=== PATIENT | female | born 1980 | race Caucasian/White ===

== ENCOUNTER 2021-11-03 06:18 | Inpatient (IN) | payer BC ==
[~2021-11-03] VITALS: Ht 167.6 cm; Wt 106.3 kg
[~2021-11-03 06:18] MED LIST: CALCIUM CARBONATE CHEW; PRENATAL VITAMI1 TA5 PO; ZANTAC
[2021-11-03] MEDS ORDERED: ASPIRIN 32325 MG/TAB PO (06:30)
[2021-11-03] MEDS ORDERED: ONE-A-DAY ESSE1 EACH PO (06:31)
[2021-11-03 07:01] LABS: BASO # 0.1 K/mm3 (0.0-0.2); BASO % 0.7 % (0.0-2.0); EOS # 0.1 K/mm3 (0.0-0.7); EOS % 1.1 % (0.0-4.0); GRAN # 7.8 K/mm3 (1.4-6.5); GRAN % 72.3 % (42.2-75.2); HEMATOCRIT 42.8 % (37.0-47.0); HEMOGLOBIN 14.1 g/dl (12.5-16.0); LYMPH # 2.1 K/mm3 (1.2-3.4); LYMPH % 19.6 % (20.0-51.0); MEAN CELL VOLUME 87 fl (80.0-100.0); MEAN CORPUSCULAR HEMOGLOBIN 29 pg (27-31); MEAN CORPUSCULAR HGB CONC 33 g/dl (33.0-37.0); MEAN PLATELET VOLUME 9.8 fl (7.4-10.4); MONO # 0.6 K/mm3 (0.1-0.6); PLATELET COUNT 376 K/mm3 (130-400); RED BLOOD COUNT 4.95 M/mm3 (4.10-5.30); REDCELL DISTRIBUTION WIDTH-CV 13.7 % (11.5-14.5)
[2021-11-03 07:17] LABS: ALBUMIN 4.1 gm/dL (3.5-5.0); BILIRUBIN,TOTAL 0.5 mg/dL (0.2-1.2); CALCIUM 9.6 mg/dL (8.4-10.2); CREATININE, serum 0.93 mg/dL (0.57-1.11); POTASSIUM 3.6 mmol/L (3.5-4.5); TOTAL PROTEIN 7.5 gm/dL (6.2-8.1)
[2021-11-03 07:28] LABS: TROPONIN-I 0.077 ng/mL (0.00-0.033)
[2021-11-03] MEDS ORDERED: CLARITIN 1010 MG/TAB PO (12:26)
[2021-11-03 12:53] VITALS: BP 169/112; PULSE 95; TEMP 98.3
[2021-11-03 13:15] LABS: TRICYCLIC ANTIDEPRESS URINE NEGATIVE
[2021-11-03 16:25] VITALS: BP 175/114; PULSE 90; TEMP 97.6
[2021-11-03 19:31] VITALS: BP 153/99; PULSE 79; TEMP 98.1
[2021-11-04 00:11] VITALS: BP 144/83; PULSE 76; TEMP 98.4
[2021-11-04 04:48] VITALS: BP 146/84; PULSE 73; TEMP 98
--- NOTE | 2021-11-04 06:30 | NUR ---
ASSESSMENT COMPLETE FOR THIS SHIFT. PT SITTING IN BED WITH HER MOTHER BY HER SIDE. PT COMPLAINED OF A HEADACHE A COUPLE OF TIMES TONIGHT. PT GIVEN TYLENOL FOR PAIN. PT FELT TYLENOL WAS EFFECTIVE FOR HER PAIN. PT DENIED PALPITATIONS, SOB, N,V,D OR DIZZINESS. PT'S BLOOD PRESSURES IMPROVED TONIGHT WELL. PT EXPRESSED NO OTHER NEEDS AT THIS TIME. CALL LIGHT WITHIN REACH.
[2021-11-04 07:14] LABS: BASO % 0.5 % (0.0-2.0); EOS # 0.1 K/mm3 (0.0-0.7); GRAN # 5.4 K/mm3 (1.4-6.5); GRAN % 65.7 % (42.2-75.2); HEMOGLOBIN 12.2 g/dl (12.5-16.0); LYMPH % 24.9 % (20.0-51.0); MEAN CELL VOLUME 84 fl (80.0-100.0); MEAN CORPUSCULAR HEMOGLOBIN 28 pg (27-31); MEAN CORPUSCULAR HGB CONC 33 g/dl (33.0-37.0); MEAN PLATELET VOLUME 9.6 fl (7.4-10.4); MONO # 0.6 K/mm3 (0.1-0.6); MONO % 7.7 % (1.7-9.3); PLATELET COUNT 342 K/mm3 (130-400); RED BLOOD COUNT 4.35 M/mm3 (4.10-5.30); REDCELL DISTRIBUTION WIDTH-CV 13.6 % (11.5-14.5)
[2021-11-04 07:15] VITALS: BP 148/93; PULSE 78; TEMP 97.9
[2021-11-04 07:15] LABS: HEMATOCRIT 36.5 % (37.0-47.0)
[2021-11-04 07:29] LABS: ALBUMIN 3.4 gm/dL (3.5-5.0); CALCIUM 8.6 mg/dL (8.4-10.2); CREATININE, serum 0.78 mg/dL (0.57-1.11); MAGNESIUM 2.1 mg/dL (1.6-2.6); PHOSPHOROUS 3.5 mg/dL (2.3-4.7); POTASSIUM 3.5 mmol/L (3.5-4.5)
--- NOTE | 2021-11-04 10:53 | NUR ---
PT SITTIN UP IN BED. MORNING MEDICATIONS GIVEN. SHIFT ASSESSMENT COMPLETED. AT BEDSIDE. PT DENIES ANY PAIN AT THIS TIME. STATES SHE IS EAGER TO D/C HOME. UPDATED PT ON POC. WILL CONTINUE TO MONITOR.
--- NOTE | 2021-11-04 11:15 | NUR ---
SW met with patient to complete intake. Patient provides that she lives in [facility] with her Rudi Olson [phone] who was also present during intake. Patient provides that she does not utilize DME, and is independent with ADL's. PCP is Dr. Reed, pharmacy is [facility]. Patient states that she does not have anyone appointed as her DPOA-HC and does not wish to appoint anyone at this time. DC plan is to return to her home. Patient had not questions or concerns upon completion of intake. SW will continue to follow. DC plan: Home
[2021-11-04 11:46] VITALS: BP 145/86; PULSE 77; TEMP 98.2
[2021-11-04] MEDS ORDERED: ASPIRIN E.C. 8181 MG PO (13:16)
[2021-11-04] MEDS ORDERED: ZESTRIL40 MG PO (13:17)
[2021-11-04] MEDS ORDERED: PLAVIX 75MG TAB75 MG PO (13:17)
[2021-11-04] MEDS ORDERED: TOPROL XL 50MG50 MG PO (13:17)
[2021-11-04 13:25] LABS: PROTEIN, TOTAL URINE random 10 mg/dL
[2021-11-04 13:30] LABS: URINE TOTAL VOLUME 2325 mL; URINE TOTAL VOLUME - 24 HRS 2325 mL/24 hr
[2021-11-04] MEDS ORDERED: APRESOLINE 25MG25 MG PO (14:30)
--- NOTE | 2021-11-04 14:52 | NUR ---
DISCHARGE INSTRUCTIONS GIVEN, ALL QUESTIONS ANSWERED. IV D/C. PT WILL CALL WHEN READY TO BE WALKED OUT.
[2021-11-08 12:25] LABS: URINE VOLUME VMA 2325 mL (())
== END 2021-11-04 14:59 | disposition home or self-care (01) | DRG 291 ==
LOC: COL.ER 06:18 → MEDICAL 09:09 → ICU 09:09 → MEDICAL 11:55
PROVIDERS: Emergency Medicine; Internal Medicine Interventional Cardiology; ADMIT Internal Medicine
DX: I11.0 Hypertensive heart disease with heart failure (principal); I50.31 Acute diastolic (congestive) heart failure; J96.01 Acute respiratory failure with hypoxia; I16.1 Hypertensive emergency; Z68.41 Body mass index [BMI] 40.0-44.9, adult; E66.9 Obesity, unspecified; G43.909 Migraine, unspecified, not intractable, without status migrainosus; Z20.822 Contact with and (suspected) exposure to COVID-19; Z79.82 Long term (current) use of aspirin
CPT/HCPCS: 99223-AI; 99239; J1940; J7050; Q9967

== ENCOUNTER → 2021-11-13 | Outpatient (CLI) | payer BC ==
[~2021-11-13] MED LIST changes: +APRESOLINE 25MG25 MG PO; +ASPIRIN 32325 MG/TAB PO; +ASPIRIN E.C. 8181 MG PO; +CLARITIN 1010 MG/TAB PO; +ONE-A-DAY ESSE1 EACH PO; +PLAVIX 75MG TAB75 MG PO; +TOPROL XL 50MG50 MG PO; +ZESTRIL40 MG PO
== END ==
LOC: COL.VAS 10:03
DX: I11.9 Hypertensive heart disease without heart failure (principal)